=== PATIENT | female | born 1960 | race Caucasian/White ===

== ENCOUNTER 2018-02-05 20:31 | Emergency (ER) | payer BC, MEDICAID, OTHER ==
[~2018-02-05] VITALS: Ht 162.6 cm; Wt 54.0 kg
[~2018-02-05 20:31] MED LIST: ambien PO; xanax PO
[2018-02-05 20:35] VITALS: BP 129/79
== END 2018-02-05 21:55 | disposition home or self-care (01) ==
LOC: ER 20:31
DX: S62.521A Displaced fracture of distal phalanx of right thumb, initial encounter for closed fracture (principal); Z90.710 Acquired absence of both cervix and uterus; Z88.5 Allergy status to narcotic agent; Z98.890 Other specified postprocedural states; W23.0XXA Caught, crushed, jammed, or pinched between moving objects, initial encounter; Y93.89 Activity, other specified; Y92.89 Other specified places as the place of occurrence of the external cause; Y99.8 Other external cause status
CPT/HCPCS: 73140-TC; A4606; Z7610

== ENCOUNTER 2021-11-19 15:30 | Emergency (ER) | payer BC, MEDICAID ==
[~2021-11-19] VITALS: Ht 162.6 cm; Wt 54.4 kg
--- NOTE | 2021-11-19 15:41 | NUR ---
TO ER BED 13, PERSISTENT COUGH AND SOB, COVID-19 INFECTION IN 2019 AND 11/02/2021, SATTING 98% IN ROOM AIR, AAOX3, BREATHING EVEN AND NON LABORED, AWAITING MD SNYDER
[2021-11-19 17:35] LABS: ALBUMIN 3.9 g/dL (3.4-5.0); BILIRUBIN,DIRECT 0.1 mg/dL (0.0-0.2); BILIRUBIN,TOTAL 0.2 mg/dL (0.2-1.0); TOTAL PROTEIN, SERUM 7.8 g/dL (6.4-8.2)
[2021-11-19 17:36] LABS: CARBON DIOXIDE 25 mmol/L (21-32); CHLORIDE 102 mmol/L (98-107); CREATININE 0.9 mg/dL (0.6-1.3); GLUCOSE 106 mg/dL (74-106); SODIUM SERUM 139 mmol/L (136-145); UREA NITROGEN, BLOOD 18 mg/dL (7-18)
[2021-11-19 18:22] LABS: BASOPHILS % (AUTO) 0.2 % (0.0-2.0); EOSINOPHILS % (AUTO) 0.6 % (0.0-6.0); HEMATOCRIT 42 % (33-45); HEMOGLOBIN 13.7 g/dL (11.5-14.8); LYMPHOCYTES # (AUTO) 1.5 K/uL (0.8-4.8); LYMPHOCYTES % (AUTO) 17.8 % (20.0-44.0); MEAN CORPUSCULAR HGB CONC 33 g/dl (31.0-36.0); MEAN CORPUSCULAR VOLUME 92 fL (82-100); MONOCYTES # (AUTO) 0.7 K/uL (0.1-1.30); NEUTROPHILS % (AUTO) 72.4 % (43.0-81.0); PLATELET COUNT (AUTO) 344 K/uL (150-450); WHITE BLOOD COUNT (AUTO) 8.2 K/uL (4.3-11.0)
--- NOTE | 2021-11-19 20:23 | NUR ---
Patient discharged to home in stable condition. Written and verbal after care instructions given. Patient verbalizes understanding of instruction. Pt ambulatory with a steady gait
[2021-11-19 20:26] VITALS: BP 114/65
== END 2021-11-19 20:26 | disposition home or self-care (01) ==
LOC: ER 15:31
DX: R05.9 Cough, unspecified (principal); U09.9 Post COVID-19 condition, unspecified; Z98.890 Other specified postprocedural states; Z88.5 Allergy status to narcotic agent; Z79.899 Other long term (current) drug therapy
CPT/HCPCS: 36415; 71045-TC; 80048-TC; 80076-TC; 83880; 84484-TC; 85025-TC

== ENCOUNTER 2025-05-25 23:26 | Emergency (ER) | payer OTHER, MEDICAID ==
[~2025-05-25] VITALS: Ht 162.6 cm; Wt 59.0 kg
[2025-05-26 00:29] VITALS: TEMP 98.1
[2025-05-26 01:42] LABS: APPEARANCE,URINE CLEAR (CLEAR); BLOOD, URINE 1+ Ery/uL (NEGATIVE); LEUKOCYTE ESTERASE ,URINE 1+ (NEGATIVE); NITRITE, URINE NEGATIVE (NEGATIVE); UGLUCOSE NEGATIVE (NEGATIVE)
[2025-05-26 01:42] LABS: PLATELET COUNT (AUTO) 259 K/uL (150-450); RED BLOOD CELL COUNT(AUTO) 4.57 MIL/uL (4.0-5.2); RED CELL DISTRIBUTION WIDTH 12.9 % (11.5-15.0); WHITE BLOOD COUNT (AUTO) 7.4 K/uL (4.3-11.0)
[2025-05-26 01:43] LABS: CALCIUM, SERUM 10.0 mg/dL (8.5-10.1); CREATININE 0.6 mg/dL (0.6-1.3); SODIUM SERUM 140.0 mmol/L (136-145); UREA NITROGEN, BLOOD 25.0 mg/dL (7-18)
[2025-05-26 01:48] LABS: CREATINE KINASE, TOTAL 899.0 U/L (26-192)
[2025-05-26 01:52] LABS: LACTIC ACID 1.1 mmol/L (0.4-2.0)
[2025-05-26 01:57] LABS: ASPARTATE AMINOTRANSFERASE 46.0 U/L (15-37); NT-PRO BNP 49.0 pg/mL (0-125); TOTAL PROTEIN, SERUM 7.7 g/dL (6.4-8.2)
[2025-05-26 02:10] LABS: ADD URINE CULTURE YES; SQUAMOUS EPITHELIAL CELL,UR Few /HPF (None Seen)
[2025-05-26] MEDS: IV NS 0.9% 1,000 ML IV ONE (03:00)
[2025-05-26 09:55] VITALS: BP 112/78; O2SAT 99
[2025-05-26] MEDS ORDERED: ALEN70TA80 PO (10:01)
[2025-05-26] MEDS ORDERED: TIZA2CAP PO (10:01)
[2025-05-26] MEDS ORDERED: ZOLP5TAB2 PO (10:01)
[2025-05-26] MEDS ORDERED: CHOL100043 PO (10:01)
[2025-05-26] MEDS ORDERED: FLUT1BLS11 IH (10:01)
[2025-05-26] MEDS ORDERED: ALPR0.255 PO (10:01)
== END 2025-05-26 13:11 | disposition short-term general hospital (02) ==
LOC: ER 23:32 → UNDOADMIN 05-26 11:39 → MED 05-26 11:39 → ER 05-26 13:11 → UNDODISIN 05-26 13:30
DX: U07.1 COVID-19 (principal); R94.4 Abnormal results of kidney function studies; R00.2 Palpitations; Z90.710 Acquired absence of both cervix and uterus
CPT/HCPCS: 99285; 96360; 71045; 93005; 85025; 82550 ×2; 87086; 83605; 81001; 36415; 80053; 84484; 83880; 82553; J7030; G0378

== ENCOUNTER 2025-08-02 23:46 | Emergency (ER) | payer OTHER, MEDICAID ==
[~2025-08-02] VITALS: Ht 162.6 cm; Wt 59.9 kg
[~2025-08-02 23:46] MED LIST changes: +ALEN70TA80 PO; +ALPR0.255 PO; +CHOL100043 PO; +FLUT1BLS11 IH; +TIZA2CAP PO; +ZOLP5TAB2 PO; -ambien PO; -xanax PO
[2025-08-03] MEDS ORDERED: IBUPROFEN 400 MG TABLET ONE (01:51)
[2025-08-03] MEDS: IBUPROFEN 400 MG TABLET PO ONE (01:53)
[2025-08-03 02:00] VITALS: BP 130/74; TEMP 98; O2SAT 98
== END 2025-08-03 02:01 | disposition home or self-care (01) ==
LOC: ER 23:48
DX: K08.89 Other specified disorders of teeth and supporting structures (principal); Z79.51 Long term (current) use of inhaled steroids; Z88.5 Allergy status to narcotic agent; Z90.710 Acquired absence of both cervix and uterus